=== PATIENT | female | born 1995 | race African-American/Black ===

== ENCOUNTER 2017-09-10 00:10 | Emergency (ER) | payer SELFPAY ==
[~2017-09-10] VITALS: Ht 157.5 cm; Wt 65.8 kg
[2017-09-10 00:15] VITALS: BP 134/76
[2017-09-10] MEDS ORDERED: cefTRIAXone 1GM/10ml IVPUSH 10 ML IV ONE (02:45)
[2017-09-10] MEDS ORDERED: SODIUM CHLORIDE 0.9% 1,000 ML IV ONE (02:45)
[2017-09-10] MEDS ORDERED: ONDANSETRON HCL 4 MG/2 ML VIAL IV ONE (03:00)
[2017-09-10] MEDS ORDERED: cefTRIAXone SOD 1,000 MG VL ONE (03:10)
== END 2017-09-10 05:25 | disposition home or self-care (01) ==
LOC: ER 00:12
DX: J40 Bronchitis, not specified as acute or chronic (principal); N39.0 Urinary tract infection, site not specified; Z32.01 Encounter for pregnancy test, result positive
CPT/HCPCS: 81025; 96361; 96374; 96375; 99284; J0696; J2405

== ENCOUNTER 2018-03-03 00:02 | Observation (INO) | payer SELFPAY ==
[~2018-03-03] VITALS: Ht 157.5 cm; Wt 100.7 kg
[2018-03-03] MEDS ORDERED: PREN-96 PO (00:46)
[2018-03-03 01:41] LABS: Urine Bacteria FEW /hpf (None Seen); Urine Blood Negative /uL (Negative); Urine Mucus FEW (None Seen); Urine Specific Gravity 1.027 (1.001-1.035); Urine WBC 34 /hpf (0 - 5)
[2018-03-03 02:01] LABS: Alcohol, Urine < 3.0 mg/dL (0-5); Amphetamine Screen, Urine NEGATIVE (NEGATIVE); Barbiturate Scree,Urine NEGATIVE (NEGATIVE); Benzodiazephine Screen, Urine NEGATIVE (NEGATIVE); Cannabinoid Screen, Urine POSITIVE (NEGATIVE); Cocaine Screen, Urine NEGATIVE (NEGATIVE); Opiate Scree,Urine NEGATIVE (NEGATIVE); Phencyclidine Screen, Urine NEGATIVE (NEGATIVE)
== END 2018-03-03 01:45 | disposition home or self-care (01) | DRG 782 ==
LOC: LDRP 00:02
PROVIDERS: ADMIT Specialist; ATTEND Specialist
DX: O62.9 Abnormality of forces of labor, unspecified (principal); Z3A.38 38 weeks gestation of pregnancy
CPT/HCPCS: 59025; 80307; 81001; 81002; G0378